=== PATIENT | female | born 1965 | race Native Hawaiian/Other Pacific Islander ===

== ENCOUNTER → 2022-11-30 | Outpatient (CLI) | payer MEDICAID | LOC: M PLALAB 15:30 | DX: Z11.1 Encounter for screening for respiratory tuberculosis (principal) ==

== ENCOUNTER 2022-12-07 19:37 | Emergency (ER) | payer MEDICAID ==
[~2022-12-07] VITALS: Ht 165.1 cm; Wt 71.4 kg
[2022-12-07 19:37] VITALS: BP 134/75; TEMP 97.2; O2SAT 94
== END 2022-12-07 20:18 | disposition left against medical advice (07) ==
LOC: M ED 19:37
DX: Z53.21 Procedure and treatment not carried out due to patient leaving prior to being seen by health care provider (principal)